=== PATIENT | female | born 1985 | race Caucasian/White ===

== ENCOUNTER 2023-12-07 12:04 | Emergency (ER) | payer OTHER, SELFPAY ==
--- NOTE | ~2023-12-07 | XR_ITS ---
XR chest 2V 12/07/2023 13:21 Indication: Cough with wheezing Procedure: 2 view chest Comparison: No prior studies for comparison. Findings: Right basilar infiltrates may represent atelectasis or pneumonia. Heart size normal. No ple ural effusion, edema or pneumothorax. No acute osseous abnormality. Impression: 1: Right basilar infiltrates may represent atelectasis or pneumonia. Reviewed, dictated and finalized at location B. Impression: 1: Right basilar infiltrates may represent atelectasis or pneumonia.
[2023-12-07 12:18] VITALS: BP 151/85; PULSE 91; RESP 16; TEMP 36.8; O2SAT 98
--- NOTE | 2023-12-07 12:56 | ED.GENADULT ---
HPI - General Adult General Chief complaint: Upper Respiratory Infection Stated complaint: COUGH/CONGESTION/WHEEZING/RUNNY NOSE Time Seen by Provider: 12/07/23 12:56 Source: patient Mode of arrival: ambulatory Limitations: no limitations History of Present Illness HPI narrative: 38-year-old female patient presents to the [facility] with complaints of cough for the past 5 days. Denies fevers, body aches or chills. Denies nausea, vomiting or diarrhea. Denies abdominal pain. Patient states she has been coughing so much and coughing up thick yellow phlegm. Patient states she has had a runny nose and has been getting headaches. Denies any ear pain or sore throat currently. Patient states she has been taking [id number] Mucinex and an antihistamine recommended by the pharmacist to help with symptoms and does not feel like it is helping much. Patient denies any history of asthma and denies any smoking history Related Data Allergies Allergy/AdvReac Type Severity Reaction Status Date / Time hydrocodone Allergy Mild Rash Unverified 05/10/21 08:24 Review of Systems Review of Systems: CONSTITUTIONAL: Denies fever, chills, or sweats. EYES: Denies visual changes, redness, or discharge. ENT: positive rhinorrhea, congestion, denies sore throat, denies otalgia. CARDIOVASCULAR: Denies chest pain, palpitations, or edema. RESPIRATORY: positive productive cough with intermittent dyspnea. GASTROINTESTINAL: Denies abdominal pain, nausea, vomiting, or diarrhea. GENITOURINARY: Denies dysuria or hematuria. SKIN: Denies rash or itching. MUSCULOSKELETAL: Denies back pain, joint pain, or myalgia. NEUROLOGIC: Denies headache, numbness, or weakness. PSYCHIATRIC: Denies anxiety or depression. [facility] Family History Family History Sibling Asthma Patient's sister is in good health Patient's brother is in good health Mother Patient's mother is in good health Father Patient's father is in good health Grandparent Carcinoma of colon Family history of lung cancer Family history of malignant neoplasm of breast Other Family history of malignant neoplasm of male breast Social History Social History Smoking status: Never smoker Alcohol intake: never Comments At the time of my signature I agree with nursing past medical history, surgical, social, and family history. There is no relevant family history pertinent to the presenting complaint. Exam Narrative: GENERAL: Well-appearing, well-nourished, and in no acute distress. HEAD: Normocephalic, atraumatic. EYES: PERRLA and EOMI. ENT: Nares with erythema edema noted bilaterally, no rhinorrhea or epistaxis. Mucous membranes moist. posterior pharynx with no erythema, tonsillar enlargement, exudates or lesions present. Slight postnasal drip noted. Bilateral TMs do appear to have a little bit of fluid behind them but no erythema, bulging or foreign bodies the canal. NECK: Supple. No lymphadenopathy CHEST: Very slight expiratory wheeze noted to the left lower lobe on auscultation. No respiratory distress. patient able talk in clear complete sentences HEART: Regular rate and rhythm. No murmur heard. Normal peripheral pulses. ABDOMEN: Soft, nontender, nondistended, normal active bowel sounds. EXTREMITIES: Normal range of motion. No edema. SKIN: Warm, dry, no rash. NEURO: No focal deficits. Alert and oriented x3. Course Course Level of Care: Express Care Visit Reevaluation(s) Reevaluation #1: re-evaluated patient patient that she appears to have some viral pneumonia per her x-ray. Discussed with patient we will discharge her home with oral steroids, cough cough medication albuterol inhaler. Discussed with patient she can continue taking Tylenol and ibuprofen as needed for any pain or fevers. Discussed patient if her symptoms worsen she should follow-up with her primary
== END 2023-12-07 14:00 | disposition home or self-care (01) ==
PROVIDERS: Emergency Provider Nurse Practitioner Family; PCP Family Medicine
DX: J12.9 Viral pneumonia, unspecified (principal); J98.11 Atelectasis; Z20.822 Contact with and (suspected) exposure to COVID-19
CPT/HCPCS: 71046; 87426; 99203; G0463